=== PATIENT | male | born 2000 | race Caucasian/White ===

== ENCOUNTER 2020-11-26 10:15 | Emergency (ER) | payer OTHER ==
--- NOTE | 2020-11-26 10:36 | EKG REPORT ---
SEVERITY:- ABNORMAL ECG - SINUS TACHYCARDIA NONSPECIFIC INTRAVENTRICULAR CONDUCTION DELAY INFERIOR Q WAVES, PROBABLY NORMAL VARIATION : Confirmed by: Kris Bojorquez 26-Nov-2020 10:36:07
[2020-11-26 10:37] LABS: HEMATOCRIT 43.9 % (37.9-51.0); HEMOGLOBIN 15.5 g/dL (13.5-17.0); MEAN CORPUSCULAR HEMOGLOBIN 33.9 pg (27.0-33.4); MEAN CORPUSCULAR HGB CONC 35.2 g/dL (32.0-36.0); MEAN CORPUSCULAR VOLUME 96 fl (80-97); PLATELET COUNT 186 10^3/uL (150-450); RED BLOOD COUNT 4.56 10^6/uL (4.35-5.55); RED CELL DISTRIBUTION WIDTH 13.6 % (11.5-14.0); WHITE BLOOD COUNT 8.6 10^3/uL (4.0-10.5)
[2020-11-26 11:03] LABS: ALBUMIN 5.1 g/dL (3.5-5.0); ALKALINE PHOSPHATASE 56 U/L (38-126); ANION GAP 14 (5-19); ASPARTATE AMINO TRANSFERASE 60 U/L (17-59); BILIRUBIN,DIRECT 0.3 mg/dL (0.0-0.4); BILIRUBIN,TOTAL 1.1 mg/dL (0.2-1.3); BLOOD UREA NITROGEN 7 mg/dL (7-20); CALCIUM 10.2 mg/dL (8.4-10.2); CARBON DIOXIDE 26 mmol/L (22-30); CHLORIDE 96 mmol/L (98-107); GLUCOSE 158 mg/dL (75-110); POTASSIUM 4.8 mmol/L (3.6-5.0); TOTAL PROTEIN 8.6 g/dL (6.3-8.2)
--- NOTE | 2020-11-26 11:03 | RADIOLOGY REPORT (SQ) ---
EXAM DESCRIPTION: CT HEAD WITHOUT IMAGES COMPLETED DATE/TIME: 11/26/2020 10:51 am REASON FOR STUDY: possible seizure COMPARISON: None. TECHNIQUE: Axial images acquired through the brain without intravenous contrast. Images reviewed wi th bone, brain and subdural windows. Additional sagittal and coronal reconstructions were generated. Images stored on PACS. All CT scanners at this facility use dose modulation, iterative reconstruction, and/or weight based d osing when appropriate to reduce radiation dose to as low as reasonably achievable (ALARA). [facility]: Dose Right [facility]: CareDose [facility]: Dose Right [facility]: Teradose 4D [facility]: Smart Technologies RADIATION DOSE: CT Rad equipment meets quality standard of care and radiation dose reduction techniq ues were employed. CTDIvol: 53.2 mGy. DLP: 1017 mGy-cm. mGy. LIMITATIONS: None. FINDINGS: VENTRICLES: Normal size and contour. There is an 8 mm homogeneous slightly hyperdense rou nd lesion in the anterior 3rd ventricle. CEREBRUM: No masses. No hemorrhage. No midline shift. No evidence for acute infarction. Normal gra y/white matter differentiation. No areas of low density in the white matter. CEREBELLUM: No masses. No hemorrhage. No alteration of density. No evidence for acute infarction. EXTRAAXIAL SPACES: No fluid collections. No masses. ORBITS AND GLOBE: No intra- or extraconal masses. Normal contour of globe without masses. CALVARIUM: No fracture. PARANASAL SINUSES: No fluid or mucosal thickening. SOFT TISSUES: No mass or hematoma. OTHER: No other significant finding. IMPRESSION: 8 MM SLIGHTLY HYPERDENSE LESION IN THE ANTERIOR 3RD VENTRICLE. TYPICAL APPEARANCE FOR A SMALL COLLOID CYST. NO OTHER SIGNIFICANT FINDINGS. EVIDENCE OF ACUTE STROKE: NO. COMMENT: Quality ID # [id number]: Final reports with documentation of one or more dose reduction techniques (e.g., Automated exposure control, adjustment of the mA and/or kV according to patient size, use of iterative reconstruction technique) TECHNICAL DOCUMENTATION: JOB ID: [id number] [employer]- All Rights Reserved Reading location - IP/workstation name: [email or web address]
[2020-11-26 11:06] LABS: ALCOHOL < 10 mg/dL (NONE DETECTED)
[2020-11-26 11:14] LABS: ABSOLUTE LYMPHOCYTES# (MANUAL) 0.3 10^3/uL (0.5-4.7); ABSOLUTE MONOCYTES # (MANUAL) 0.4 10^3/uL (0.1-1.4); BAND NEUTROPHILS % (MANUAL) 2 % (3-5); BASOPHILS % (MANUAL) 1 % (0-2); EOSINOPHILS % (MANUAL) 0 % (0-6); LYMPHOCYTES % (MANUAL) 3 % (13-45); MONOCYTES % (MANUAL) 5 % (3-13); SEGMENTED NEUTROPHILS % (MAN) 89 % (42-78); TOTAL CELLS COUNTED 100
[2020-11-26 11:15] LABS: PLATELET COMMENT ADEQUATE; RBC MORPHOLOGY COMMENT NORMO-CYTIC/CHROMIC
--- NOTE | 2020-11-26 11:18 | ER Document Report ---
ED General - General Chief Complaint: Probable Seizure Stated Complaint: PROBABLE SEIZURE Time Seen by Provider: 11/26/20 10:36 - HPI Notes: Patient is a 20-year-old male with a past medical history of anxiety who presents with seizure-like activity. Patient is with his girlfriend. He is visiting from out of town. He goes to [employer] in [place]. Patient states that this morning he woke up and smelled an abnormal smell. He then developed chest pain and palpitations. Patient states that this morning's episode was worse t friedman his previous episodes. He states that he then had a syncopal event. His girlfriend heard him fall and came into the room. He fell onto the carpet. She states that she thinks he was unconscious for about 4 minutes. Afterwards, she states that he was confused for about 15 minutes. She states that she saw horizontal eye movements bilaterally. He was also twitching in his upper extremities bilaterally after he passed out. Patient was on an anxiety medicine but does not remember what it was. He states he stopped it 3 months ago. He also occasionally takes Adderall for school but has not taken in the past 2 months. He denies any other drugs or medications. Does vape. He mentions that he has had these episodes for years where he smells an abnormal smell and then gets palpitations and chest pain. They usually quickly resolve. He states that the past 2 days they have been more frequent. He also has been very anxious these past 2 days more than normal. He denies fevers, chills, headaches or neck pain. He does mention he has had some loose stools and vomiting while he has been in town. He denies eating any new foods. He denies anyone with similar symptoms around him. - Related Data Allergies/Adverse Reactions: No Known Allergies Allergy (Unverified 11/26/20 10:21) Home Medications: Adderral Past Medical History - General Information source: Patient, Relative - Social History Smoking Status: Never Smoker Frequency of alcohol use: Occasional Family History: Reviewed & Not Pertinent Psychiatric Medical History: Reports: Hx Attention Deficit Hyperactivity Disorder Review of Systems - Review of Systems Notes: CONSTITUTIONAL: No fever, fatigue or weight loss. SKIN: No rash. HENT: No congestion, ear pain, or sore throat. EYES: No recent vision problems or eye pain. CARDIOVASCULAR: Positive for chest pain that resolved. RESPIRATORY: No cough, shortness of breath, congestion, or wheezing. GASTROINTESTINAL: No abdominal pain. Positive for nausea and vomiting. Positive for loose stools. GENITOURINARY: No dysuria. MUSCULOSKELETAL: No joint pain or swelling. LYMPHATIC: No swollen glands. NEUROLOGIC: Positive for bilateral upper extremity twitching and syncope. No headache. No focal weakness or sensory changes. HEMATOLOGIC: No unusual bruising or bleeding. PSYCHIATRIC: No depression. History of anxiety. Physical Exam - Vital signs Vitals: Temp Pulse Resp BP Pulse Ox 98.7 F 108 H 20 161/118 H 98 11/26/20 10:21 11/26/20 10:21 11/26/20 10:21 11/26/20 10:21 11/26/20 10:21 - General General appearance: Appears well In distress: None Notes: VITAL SIGNS: Slight tachycardia. GENERAL: No acute distress, non-toxic appearance. HEAD: Normal with no signs of head trauma. EYES: EOMI, conjunctiva normal, no discharge. EARS: Hearing grossly intact. NOSE: Normal. NECK: Normal range of motion, no tenderness, supple, no lymphadenopathy, No adenopathy, no JVD. No posterior cervical tenderness. CHEST: Clear breath sounds bilaterally. No wheezes, rales, or rhonchi. CARDIAC: Regular rate and rhythm. VASCULAR: No Edema. ABDOMEN: Normal and soft with no tenderness, no masses or pulsatile masses. GENITOURINARY: Normal, No tenderness LYMPATHTIC: No lymphadenopathy noted. MUSCULOSKELETAL: Good range of motion of all major joints. Extremities without clubbing, cyanosis or edema. NEUROLOGICAL: Alert and oriented x 3. No focal sensory or strength deficits. Speech normal. Follows commands appropriately. PSYCHIATRIC: Normal Affect, judgement and mood. Appears anxious. SKIN: Normal appearance with no rashes or lesions. Course - Re-evaluation Re-evalutation: 11/26/20 13:[address] Markus Savage, neurology from [facility]. Patient's mother called and was concerned that this could be withdrawal seizures. Patient states he drinks 5 beers about 4-5 days a week. He drank more beers on . Yesterday, he had one white claw alcoholic drink. Neurology stated that this is unlikely a withdrawal seizure. He recommended that patient have an outpatient EEG and MRI. He also recommended patient keep a log of all of his symptoms including any palpitations or weird smells to take to the neurologist. I told the patient and his girlfriend that he must not drive until he has a full evaluation. The girlfriend states she will drive back to [place] and he will not be behind the wheel. Patient still continues to have slight tachycardia. He states that he is improved after Ativan. He is no longer as jittery or anxious. I gave him another bag of fluids because he states he does not drink enough water. I also discussed the CAT scan findings of the cyst with the neurologist who agreed that that was likely a benign finding and not the cause of his symptoms. Patient's mother called and was concerned about his tachycardia and high blood pressure. I did discuss with the hospitalist who recommended we start him on ca rvedilol. I do suspect that his high blood pressure and tachycardia are due to anxiety as he is still jittery in the room but it is improved after Ativan. Patient states he feels completely fine. He has no headache or chest pain. Patient states he would like to go home. I will give him the carvedilol and monitor. Patient's heart rate improved to the low 100s. It is 109 at discharge. His blood pressure is also improved. However, patient continues to stare at the monitor and his blood pressure readings which I think is contributing to the elevated findings and his stress. I told patient that he needs to take his blood pressure 3 times a day and keep a log of this. He needs to follow-up with his PCP and a neurologist as soon as he comes home. He was told to return to the ER immediately for any worsening symptoms. 11/26/20 19:54 11/28/20 07:46 - Vital Signs Vital signs: Temp Pulse Resp BP Pulse Ox 98.4 F 110 H 16 146/113 H 99 11/26/20 18:53 11/26/20 18:53 11/26/20 18:53 11/26/20 18:42 11/26/20 18:53 - Laboratory Results Result Diagrams: 11/26/20 10:20 11/26/20 10:20 Laboratory Results Interpreted: 11/26/20 11/26/20 11/26/20 10:20 10:20 11:28 [facility] 33.9 H Seg Neuts % (Manual) 89 H Band Neutrophils % 2 L Lymphocytes % (Manual) 3 L Abs Lymphs (Manual) 0.3 L Sodium 136.0 L Chloride 96 L Glucose 158 H AST 60 H Total Protein 8.6 H Albumin 5.1 H Urine Protein 100 H Urine Glucose (UA) 50 H Urine Ketones TRACE H Urine Ascorbic Acid 20 H Critical Laboratory Results Reviewed: No Critical Results - Radiology Results Critical Radiology Results Reviewed: No Critical Results - EKG Interpretation by Me EKG shows normal: Sinus rhythm Rate: Tachycardia Rhythm: NSR When compared to previous EKG there are: Previous EKG unavailable Additional EKG results interpreted by me: 11/26/20 11:22 Sinus tachycardia at a rate of 101. QTc 426. Artifact present. No acute ST changes. No previous EKG available for comparison. Discharge - Discharge Clinical Impression: Colloid cyst of third ventricle, Seizure-like activity, Tachycardia Syncope Qualifiers: Syncope type: unspecified Qualified Code(s): R55 - Syncope and collapse Hypertension Qualifiers: Hypertension type: unspecified Qualified Code(s): I10 - Essential (primary) hypertension Condition: Stable Disposition: HOME, SELF-CARE Instructions: High Blood Pressure ([facility]), New Seizure ([facility]), Syncopal Episode ([facility]) Additional Instructions: Your work-up today is reassuring. As per the neurologist recommendation, please keep a log of any abnormal smells or palpitations that you experience. You need to call a neurologist as soon as you get back into town. You will need to have an EEG and MRI of the brain done. Make sure you are staying hydrated. Please return to the ER immediately for any return of symptoms or any other concerning signs. Please make sure you DO NOT drive until you are fully evaluated and cleared by neurology. You were started on a blood pressure medicine, carvedilol, with consultation from the hospitalist. Please take your blood pressure 3 times a day at breakfast, lunch, dinner and keep a log of this. Do not take the medicine if your blood pressure is normal. Normal blood pressure is 120/80. Please follow-up with your family doctor about this as well. Return to the ER immediately for any worsening symptoms. Prescriptions: Carvedilol [Coreg 6.25 mg Tablet] 6.25 mg PO Q12 10 Days #20 tablet
[2020-11-26 11:53] LABS: APPEARANCE,URINE CLEAR; BILIRUBIN,URINE NEGATIVE (NEGATIVE); COLOR,URINE YELLOW; GLUCOSE, URINE 50 mg/dL (NEGATIVE); KETONES,URINE TRACE mg/dL (NEGATIVE); LEUKOCYTE ESTERASE,URINE NEGATIVE (NEGATIVE); NITRITE,URINE NEGATIVE (NEGATIVE); PROTEIN,URINE 100 mg/dL (NEGATIVE); URINE SPECIFIC GRAVITY 1.014; UROBILINOGEN,URINE NEGATIVE mg/dL (<2.0)
[2020-11-26] MEDS ORDERED: LORAZEPAM INJ 2 MG/1 ML VIAL IV ONE (12:05)
[2020-11-26 12:09] LABS: URINE AMPHETAMINES SCREEN NEGATIVE; URINE BARBITURATES SCREEN NEGATIVE; URINE BENZODIAZEPINES SCREEN NEGATIVE; URINE COCAINE SCREEN NEGATIVE; URINE MARIJUANA (THC) SCREEN NEGATIVE; URINE METHADONE SCREEN NEGATIVE; URINE PHENCYCLIDINE SCREEN NEGATIVE
[2020-11-26 12:22] LABS: FREE T4 (FREE THYROXINE) 1.09 ng/dL (0.78-2.19)
[2020-11-26 12:36] LABS: THYROID STIMULATING HORMONE 1.89 uIU/mL (0.47-4.68)
[2020-11-26] MEDS ORDERED: NORMAL SALINE 1000 ML 1,000 ML IV ONE (13:13)
--- NOTE | 2020-11-26 13:32 | RADIOLOGY REPORT (SQ) ---
EXAM DESCRIPTION: CHEST SINGLE VIEW IMAGES COMPLETED DATE/TIME: 11/26/2020 1:03 pm REASON FOR STUDY: chest pain COMPARISON: None. EXAM PARAMETERS: NUMBER OF VIEWS: One view. TECHNIQUE: Single frontal radiographic view of the chest acquired. RADIATION DOSE: NA LIMITATIONS: None. FINDINGS: LUNGS AND PLEURA: No opacities, masses or pneumothorax. No pleural effusion. MEDIASTINUM AND HILAR STRUCTURES: No masses. Contour normal. HEART AND VASCULAR STRUCTURES: Heart normal in size. Normal vasculature. BONES: No acute findings. HARDWARE: None in the chest. OTHER: No other significant finding. IMPRESSION: NO ACUTE RADIOGRAPHIC FINDING IN THE CHEST. TECHNICAL DOCUMENTATION: JOB ID: [id number] [employer]- All Rights Reserved Reading location - IP/workstation name: [email or web address]
[2020-11-26] MEDS ORDERED: CARVEDILOL 6.25 MG TABLET PO ONE (16:47)
[2020-11-26 18:53] VITALS: BP 146/113
== END 2020-11-26 18:55 | disposition home or self-care (01) ==
LOC: ER 10:15
DX: Q04.6 Congenital cerebral cysts (principal); R56.9 Unspecified convulsions; R00.0 Tachycardia, unspecified; R55 Syncope and collapse; I10 Essential (primary) hypertension; R07.9 Chest pain, unspecified; R00.2 Palpitations; R19.7 Diarrhea, unspecified; R11.10 Vomiting, unspecified; Z79.899 Other long term (current) drug therapy
CPT/HCPCS: 93005; 99285; 96361; 96374; 36415; 84439; 80307 ×2; 82550; 83735; 84443; 85025; 80053; 81001; 84484; 85379; 71045; 70450; 93010; J2060; J7030